=== PATIENT | female | born 1950 | race Caucasian/White ===

== ENCOUNTER 2018-05-25 10:49 | Emergency (ER) | payer OTHER ==
[~2018-05-25] VITALS: Ht 152.4 cm; Wt 49.9 kg
[2018-05-25] MEDS ORDERED: ATORVASTATIN CA10 MG (10:55)
== END 2018-05-26 06:46 | disposition home or self-care (01) ==
LOC: ER 10:49
DX: E87.1 Hypo-osmolality and hyponatremia (principal); E86.0 Dehydration